=== PATIENT | female | born 1960 | race Caucasian/White ===

== ENCOUNTER 2022-02-02 12:54 | Outpatient (CLI) | payer BC ==
[2022-02-02 13:20] LABS: Cardiac Risk 5.2 (Less than 4.5)
== END 2022-02-02 12:55 | disposition home or self-care (01) ==
LOC: MADLABBHPM 12:54 → MADLAB 12:55
PROVIDERS: ATTEND Family Medicine
DX: E78.5 Hyperlipidemia, unspecified (principal)
CPT/HCPCS: 80061

== ENCOUNTER 2023-03-16 10:23 | Outpatient (CLI) | payer BC | END 2023-03-16 10:24 | disposition home or self-care (01) | LOC: MADRAD 10:23 | PROVIDERS: ATTEND Specialist | DX: M47.22 Other spondylosis with radiculopathy, cervical region (principal); Z98.890 Other specified postprocedural states | CPT/HCPCS: 72052 ==

== ENCOUNTER 2023-11-12 11:12 | Outpatient (CLI) | payer BC | END 2023-11-12 11:13 | disposition home or self-care (01) | LOC: MADLAB 11:12 | PROVIDERS: ATTEND Registered Nurse | DX: M25.541 Pain in joints of right hand (principal) ==

== ENCOUNTER 2024-02-01 08:25 | Outpatient (CLI) | payer BC | END 2024-02-01 08:26 | disposition home or self-care (01) | LOC: MADRAD 08:25 | PROVIDERS: ATTEND Registered Nurse | DX: M79.672 Pain in left foot (principal); M25.472 Effusion, left ankle ==

== ENCOUNTER 2024-06-12 18:04 | Emergency (ER) | payer BC ==
[2024-06-12] MEDS ORDERED: Ketorolac Tromethamine 30 MG (1 mL) VIAL ONE (18:40)
[2024-06-12] MEDS ORDERED: cloNIDine 0.1 MG TAB ONE (18:40)
[2024-06-12] MEDS ORDERED: Metoclopramide HCl 10 MG (2 mL) VIAL ONE (18:40)
[2024-06-12 18:46] LABS: #Basophils 0.1 thou/uL (0.0-0.2); #Eosinophils 0.4 thou/uL (0.0-0.7); #Monocytes 0.7 thou/uL (0.11-0.59); #Neutrophils 5.9 thou/uL (1.40-6.50); %Basophils 1.1 % (0.0-1.0); %Eosinophils 3.7 % (0.0-10.0); %Lymphocytes 35.8 % (21.0-51.0); %Monocytes 6.1 % (0.0-10.0); %Neutrophils 53.3 % (42.0-75.0); Hematocrit 40.6 % (36.0-47.0); Hemoglobin 13.1 g/dL (12.0-16.0); Mean Corpuscular HGB CONC 32.3 g/dL (32.0-36.0); Mean Corpuscular Hemoglobin 28.9 pg (27.0-31.0); Mean Corpuscular Volume 89.5 fl (78.0-98.0); Platelet Count 287 10x3/uL (130-400); RBC Distribution Width 12.4 % (11.5-14.5); Red Blood Cell (RBC) Count 4.54 mill/uL (4.20-5.40); White Blood Cell (WBC) Count 11.1 10x3/uL (4.8-10.8)
[2024-06-12 19:04] LABS: ALT (SGPT) 17 U/L (8-55); AST (SGOT) 18 U/L (5-34); Albumin 4.1 g/dL (3.4-4.8); Alkaline Phosphatase 90 U/L (40-110); Anion Gap 12 mmol/L (10-20); BUN (Urea Nitrogen) 21 mg/dL (9.8-20.1); Bilirubin, Total 0.2 mg/dL (0.2-1.2); Calc. Creatinine Clearance 0 mL/min (70-130); Calcium 9.5 mg/dL (7.8-10.44); Carbon Dioxide 25 mmol/L (23-31); Chloride 105 mmol/L (98-107); Estimated GFR 63; Globulin 3.1 g/dL (2.4-3.5); Glucose 99 mg/dL (80-115); Protein, Total 7.2 g/dL (5.8-8.1); Sodium 138 mmol/L (136-145)
[2024-06-12] MEDS ORDERED: diphenhydrAMINE 50 MG/ML VIAL ONE (19:22)
[2024-06-12] MEDS ORDERED: Dexamethasone 10 MG/ML VIAL ONE (19:22)
== END 2024-06-12 20:26 | disposition home or self-care (01) ==
LOC: MADERS 18:04
DX: I10 Essential (primary) hypertension (principal); G44.209 Tension-type headache, unspecified, not intractable; R29.700 NIHSS score 0
CPT/HCPCS: 36415; 80053; 85025; 96372; 99284; J1100; J1200; J1885; J2765